=== PATIENT | female | born 1940 | race Caucasian/White ===

== ENCOUNTER 2018-10-18 16:32 | Observation (INO) | payer OTHER, MEDICARE | END 2018-10-22 18:04 | disposition home or self-care (01) | LOC: C.ER 16:32 → C.9E 18:56 → C.5S 20:37 | DX: I16.0 Hypertensive urgency (principal); I10 Essential (primary) hypertension; E11.9 Type 2 diabetes mellitus without complications; I25.10 Atherosclerotic heart disease of native coronary artery without angina pectoris; R30.0 Dysuria; E78.00 Pure hypercholesterolemia, unspecified; Z95.1 Presence of aortocoronary bypass graft ==

== ENCOUNTER 2018-12-25 06:22 | Day surgery (SDC) | payer OTHER ==
[2018-12-25 07:01] VITALS: BMI 30.1
[2018-12-25 07:06] VITALS: RESP 19
--- NOTE | 2018-12-25 07:47 | CP.SDSHP ---
Same Day Surgery H & P - History Proposed Procedure: COLONSCOPY Pre-Op Diagnosis: SEE NOTES - Previous Medical/Surgical History Cardiac: Hypertension, ASHD/CAD Endocrine/Metabolic: Thyroid Disease, Diabetes, Other Misc: Other Pain: 4.Moderate Pain - Allergies Allergies: Allergies No Known Allergies Allergy (Verified 10/18/18 16:50) - Physical Exam General Appearance: N Vital Signs: Vital Signs 12/25/18 07:01 Temperature 99.1 F Pulse Rate 64 Respiratory 19 Rate Blood Pressure 148/64 O2 Sat by Pulse 98 Oximetry Mental Status: Alert & Oriented x3 Neuro: WNL Heart: Other Lungs: WNL GI: Other - {Optional Preform as Required} Breast: WNL Abdomen: Other Rectal: Other Integument: WNL : WNL Ortho: Other ENT: WNL - Impression Pt. Evaluated Today:Candidate for Anesthesia & Procedure: Yes - Date & Time Time: 07:47 Short Stay Discharge - Short Stay Discharge Admitting Diagnosis/Reason for Visit: COLON POLYP Disposition: HOME/ ROUTINE
[2018-12-25] MEDS ORDERED: Propofol 10 mg/ml Inj (20 ML) ONE ×2 (07:57→08:13)
[2018-12-25] MEDS ORDERED: Lidocaine Hydrochloride 5 ML INJ ONE (07:57)
[2018-12-25 08:01] VITALS: O2SAT 100
[2018-12-25] MEDS ORDERED: ePHEDrine 50 mg/ml Inj ONE (08:11)
[2018-12-25] MEDS ORDERED: Belladonna-Phenobarbital PO ONE (08:50)
[2018-12-25 09:15] VITALS: PULSE 66
[2018-12-25 09:45] VITALS: BP 129/67; TEMP 97.3
== END 2018-12-25 09:47 | disposition home or self-care (01) ==
LOC: C.ENDO 06:22
PROVIDERS: ATTEND Specialist
DX: Z86.010 Personal history of colon polyps (principal); K58.9 Irritable bowel syndrome, unspecified; D12.2 Benign neoplasm of ascending colon; K64.8 Other hemorrhoids
CPT/HCPCS: 45385; 82948; 88305; J2704